=== PATIENT | female | born 1960 | race Hispanic/Latino ===

== ENCOUNTER 2017-04-06 13:20 | Outpatient (CLI) | payer BC ==
[2017-04-06 13:42] LABS: Hemoglobin A1c 5.6 % (4.0-6.0)
[2017-04-06 14:12] LABS: ALT (SGPT) 16 U/L (8-55); AST (SGOT) 19 U/L (5-34); Albumin 3.9 g/dL (3.5-5.0); Alkaline Phosphatase 93 U/L (40-150); Anion Gap 16 mmol/L (10-20); BUN (Urea Nitrogen) 17 mg/dL (9.8-20.1); Bilirubin, Total 0.6 mg/dL (0.2-1.2); Calc. Creatinine Clearance 0 mL/min (70-130); Calcium 9.3 mg/dL (7.8-10.44); Carbon Dioxide 22 mmol/L (22-29); Cardiac Risk 6.3 (Less than 4.5); Chloride 105 mmol/L (98-107); Cholesterol 190 mg/dl (< 200 Desired); Estimated GFR-MDRD 51; Globulin 3.7 g/dL (2.4-3.5); Glucose 92 mg/dL (70-105); HDL Cholesterol 30 mg/dL (>60 Neg Risk); LDL Cholesterol, Calculated 123 mg/dL; Potassium 3.9 mmol/L (3.5-5.1); Protein, Total 7.6 g/dL (6.0-8.3); Sodium 139 mmol/L (136-145); Triglycerides 185 mg/dL (Less than 150)
== END 2017-04-06 13:21 | disposition home or self-care (01) ==
LOC: MADLABBHPM 13:20
PROVIDERS: ATTEND Family Medicine
DX: E78.2 Mixed hyperlipidemia (principal); I10 Essential (primary) hypertension
CPT/HCPCS: 36415; 80053; 80061; 83036

== ENCOUNTER 2022-03-23 12:39 | Outpatient (CLI) | payer BC | END 2022-03-23 12:40 | disposition home or self-care (01) | LOC: MADRAD 12:39 | PROVIDERS: ATTEND Family Medicine | DX: M54.50 Low back pain, unspecified (principal); M47.816 Spondylosis without myelopathy or radiculopathy, lumbar region | CPT/HCPCS: 72100 ==

== ENCOUNTER 2022-04-19 15:14 | Outpatient (CLI) | payer BC ==
[2022-04-19 15:40] LABS: INR-International Normal Ratio 0.9; Prothrombin Time 12.6 sec (12.0-14.7)
[2022-04-19 15:41] LABS: PTT 27.8 sec (22.9-36.1)
[2022-04-19 15:49] LABS: ALT (SGPT) 45 U/L (8-55); AST (SGOT) 42 U/L (5-34); Albumin 3.9 g/dL (3.4-4.8); Alkaline Phosphatase 81 U/L (40-110); Anion Gap 15 mmol/L (10-20); BUN (Urea Nitrogen) 19 mg/dL (9.8-20.1); Bilirubin, Total 0.5 mg/dL (0.2-1.2); Calc. Creatinine Clearance 0 mL/min (70-130); Calcium 9.4 mg/dL (7.8-10.44); Carbon Dioxide 27 mmol/L (23-31); Chloride 105 mmol/L (98-107); Estimated GFR 42; Globulin 3.8 g/dL (2.4-3.5); Glucose 124 mg/dL (80-115); Potassium 3.7 mmol/L (3.5-5.1); Protein, Total 7.7 g/dL (5.8-8.1); Sodium 143 mmol/L (136-145)
[2022-04-19 15:50] LABS: #Basophils 0.1 thou/uL (0.0-0.2); #Eosinphils 0.2 thou/uL (0.0-0.7); #Lymphocytes 3.5 thou/uL (1.20-3.40); #Monocytes 0.6 thou/uL (0.11-0.59); #Neutrophils 4.4 thou/uL (1.40-6.50); %Basophils 1.1 % (0.0-1.0); %Eosinophils 2.6 % (0.0-10.0); %Lymphocytes 39.3 % (21.0-51.0); %Monocytes 7.2 % (0.0-10.0); %Neutrophils 49.7 % (42.0-75.0); Mean Corpuscular HGB CONC 32.9 g/dL (32.0-36.0); Mean Corpuscular Hemoglobin 29.2 pg (27.0-31.0); Mean Corpuscular Volume 88.8 fL (78.0-98.0); Mean Platelet Volume 7.5 fL (7.4-10.4); Platelet Count 315 thou/uL (130-400); RBC Distribution Width 12.5 % (11.5-14.5); Red Blood Cell (RBC) Count 4.46 mill/uL (4.20-5.40); White Blood Cell (WBC) Count 8.9 thou/uL (4.8-10.8)
== END 2022-04-19 15:15 | disposition home or self-care (01) ==
LOC: MADEKG 15:14
PROVIDERS: ATTEND Registered Nurse
DX: Z01.818 Encounter for other preprocedural examination (principal)
CPT/HCPCS: 36415; 80053; 85025; 85610; 85730; 93005; 93010

== ENCOUNTER 2022-06-21 15:14 | Outpatient (CLI) | payer BC | END 2022-06-21 15:15 | disposition home or self-care (01) | LOC: MADRAD 15:14 | PROVIDERS: ATTEND Registered Nurse | DX: Z01.818 Encounter for other preprocedural examination (principal) | CPT/HCPCS: 71046 ==